=== PATIENT | male | born 1995 | race Caucasian/White ===

== ENCOUNTER 2018-04-19 17:01 | Emergency (ER) | END 2018-04-19 22:29 | disposition home or self-care (01) ==

== ENCOUNTER → 2018-07-04 | Outpatient (CLI) | payer BC ==
[~2018-07-04] MED LIST: NAPR-985 PO
--- NOTE | 2018-07-04 17:01 | CONS ---
Assessment/Plan Assessment/Plan Hospital Course (Demo Recall) This is a 23-year-old male who has a history of right knee ACL reconstruction 5 years ago. Over the last 3 months he has had persistent and recurrent effusions. His pain is minimal. On examination he does have an effusion. There is no gross instability. However imaging does show an ACL graft sprain. In addition the placement of the tunnels may not be optimal. He may be having some subtle instability leading to these recurrent and persistent effusions. We will begin with physical therapy for lower extremity strengthening and coordination. I would also like him to see an orthopedic sports surgeon for further evaluation and treatment. Consultation Date/Type/Reason Admit Date/Time Date of Consultation: Jul 04, 2018 Reason for Consultation Right knee swelling Date/Time of Note DATE: 07/04/18 TIME: 16:52 Hx of Present Illness Is a 23-year-old male with a chief complaint of right knee pain and swelling. The swelling began approximately 3 months ago. The patient had a right ACL reconstruction done approximately 5 years ago. He always had some stiffness and mild pain after surgery. One year ago he recalls jumping up and landing and tweaking his knee a little bit but this resolved. 3 months ago he began to have significant swelling with no known injury. The pain is rated as a 1/10 right now. Patient is mostly concerned of the increased swelling he gets with activities which prevent him from squatting and bending his knee. Patient denies complaints of numbness or tingling. Pain is not relieved by NSAID's. Denies any nazario instability Patient denies fever, chills, shortness of breath, chest pain, nausea/vomiting, constipation, diarrhea, numbness, and tingling. Past Medical History Home Meds Active Scripts Naproxen* (Naprosyn*) 500 Mg Tablet, 500 MG PO BID PRN for PAIN AND/OR INFLAMMATION, #30 TAB Prov:DOMINIK MATA PA-C 04/19/18 Allergies: Coded Allergies: No Known Allergy (Unverified , 04/19/18) Past Surgical History Right knee ACL reconstruction 2013 Family History Significant Family History: no pertinent family hx Social History Alcohol Use: none Smoking Status: Current some day smoker (Cannabis) Drug Use: marijuana Exam/Review of Systems Exam Vitals Weight: 200 pounds Height: 5 feet 10 inches Exam General: Alert, oriented x3. No Acute Distress. Heart: Regular rate and rhythm. Lungs: No respiratory distress. No accessory muscle use. Musculoskeletal: Right Knee This is a well developed male who is alert, oriented times three and in no apparent distress. Skin is intact over the right knee as well as the lower extremity with no abrasions, lacerations, or ulcerations. Observation of the patient's gait reveals an antalgic gait with No thrust. Frontal plane alignment is neutral. There is a 2+ effusion. There is no pain on palpation of either joint line. The patient demonstrates grinding anteriorly with ROM. Range of motion: 0 extension to approximately 100 degrees of flexion. Collateral ligament testing reveals no instability with varus or valgus stress at 0 and 30 degrees of flexion. Negative Trung's and negative posterior drawer. Neurovascularly intact with 5/5 EHL/tibialis anterior/gastroc. Sensation intact to light touch in a sural, saphenous, deep peroneal, superficial peroneal, medial and lateral plantar nerve distribution. Palpable, symmetric dorsalis pedis and posterior tibial pulses in both lower extremities. Hip examination normal. Imaging Imaging MRI of the right knee was personally reviewed: Findings suggestive of low-grade partial tear of the ACL graft fibers. There is a large joint effusion. Mild tendinosis of the patellar tendon no discrete meniscus tear or chondral defect or bone abnormality. PCL is intact. No meniscal tear. 3 views of the right knee were personally reviewed. They show postsurgical changes of an ACL reconstruction. The femoral tunnel is relatively vertical and anterior with the Endobutton coming out underneath the suprapatellar pouch. JOHN BENAVIDES MD Jul 04, 2018 17:01
== END | disposition home or self-care (01) ==
LOC: HKI 14:39
PROVIDERS: ATTEND Orthopaedic Surgery Adult Reconstructive Orthopaedic Surgery
DX: M25.561 Pain in right knee (principal); R22.41 Localized swelling, mass and lump, right lower limb
CPT/HCPCS: G0463